=== PATIENT | male | born 1990 | race Caucasian/White ===

== ENCOUNTER 2018-12-09 05:55 | Day surgery (SDC) | payer OTHER ==
[2018-12-02 15:11] VITALS: BMI 26.6
[~2018-12-09 05:55] MED LIST: LACTATED RINGERS 1,000 ML IV SCH
[2018-12-09 06:22] VITALS: TEMP 97.9
[2018-12-09] MEDS ORDERED: LIDOCAINE 1% 20 ML VIAL (10MG/ML) FOR IV START INTRADERMA ONE (06:25)
[2018-12-09] MEDS ORDERED: PROPOFOL 10 MG/ML 20 ML VIAL IV ONE (07:07)
[2018-12-09 08:01] VITALS: BP 130/76; PULSE 89; RESP 18
[2018-12-09 08:07] LABS: Basophils # (A) 0.1 k/uL (0-0.2); Basophils % (A) 1 %; Eosinophils # (A) 0.1 k/uL (0-0.7); Eosinophils % (A) 2 %; Lymphocytes # (A) 1.9 k/uL (1.0-4.8); Lymphocytes % (A) 30 %; MCH 30.9 pg (25.0-35.0); MCV 90.7 fL (80.0-100.0); Mean Platelet Volume 8.5; Monocytes # (A) 0.4 k/uL (0-1.0); Monocytes % (A) 6 %; Neutrophils # (A) 3.7 k/uL (1.3-7.7); Neutrophils % (A) 59 %; Platelet Count 211 k/uL (150-450); RDW 13.4 % (11.5-15.5); Reticulocyte % 1.3 % (0.5-2.0); WBC 6.3 k/uL (3.8-10.6)
[2018-12-09 08:20] LABS: HGB 20.1 gm/dL (13.0-17.5)
--- NOTE | 2018-12-09 08:55 | PCN ---
PROCEDURE NOTE DATE OF SERVICE: 12/09/2018 PROCEDURE: Bone marrow aspirate and biopsy. INDICATION: Erythrocytosis. PROCEDURE: After obtaining consent from the patient, the procedure was performed in the endoscopy suite under general anesthesia performed by the anesthesia team. The patient was put in the left lateral decubitus position. The right posterior superior iliac crest was localized. Skin was cleaned with ChloraPrep. All sterile procedures were followed with 2% Xylocaine was used for local anesthetic. A Monoject needle was inserted and 15 mL of aspirate and 2 cm core biopsy was obtained without any difficulties. Pressure applied afterwards. There was negligible blood loss. The patient tolerated procedure very well without any immediate complications. MMODL / IJN: [id number] /
== END 2018-12-09 08:05 | disposition home or self-care (01) ==
LOC: OR 05:55
PROVIDERS: ATTEND Internal Medicine Hematology & Oncology
DX: D75.1 Secondary polycythemia (principal); K21.9 Gastro-esophageal reflux disease without esophagitis; K25.9 Gastric ulcer, unspecified as acute or chronic, without hemorrhage or perforation; Z79.890 Hormone replacement therapy; Z79.899 Other long term (current) drug therapy; Z88.1 Allergy status to other antibiotic agents; Z88.0 Allergy status to penicillin; E03.9 Hypothyroidism, unspecified; Z80.3 Family history of malignant neoplasm of breast; F17.290 Nicotine dependence, other tobacco product, uncomplicated
CPT/HCPCS: 85025; 85045; 38222; J2704